=== PATIENT | female | born 1935 | race Caucasian/White ===

== ENCOUNTER 2023-01-30 10:56 | Inpatient (IN) | payer MEDICARE ==
[2023-01-30] VITALS (12 sets, daily range): BP systolic 99–130; BP diastolic 40–102
[~2023-01-30] VITALS: Ht 157.5 cm; Wt 71.4 kg
[2023-01-30 11:27] LABS: BASOPHILS % (AUTO) 0.2 % (0-1); EOSINOPHILS % (AUTO) 0.2 % (0-6); HEMATOCRIT 33.7 % (35.0-45.0); HEMOGLOBIN 11.1 g/dl (12.0-16.0); LYMPHOCYTES # (AUTO) 0.7 X10'3 (1.1-4.8); LYMPHOCYTES % (AUTO) 15.3 % (21-51); MEAN CORPUSCULAR HEMOGLOBIN 31.1 PG (27.0-31.0); MEAN CORPUSCULAR HGB CONC 32.9 g/dL (33.0-36.5); MEAN CORPUSCULAR VOLUME 94.5 FL (78-98); MEAN PLATELET VOLUME 7.5 FL (7.4-10.4); MONOCYTES # (AUTO) 0.2 X10'3 (0-0.9); MONOCYTES % (AUTO) 3.8 % (2-12); NEUTROPHILS # (AUTO) 3.6 X10'3 (1.8-7.7); NEUTROPHILS % (AUTO) 80.5 % (42-75); PLATELET COUNT 163 X10'3 (140-440); RED BLOOD COUNT 3.57 X10'6 (4.20-5.60); RED CELL DISTRIBUTION WIDTH 13.9 % (11.5-14.5); WHITE BLOOD COUNT 4.5 X10'3 (4.5-11.0)
--- NOTE | 2023-01-30 11:27 | NUR ---
Patient was seen by Dr. Benavides. Per Dr. Benavides, we will keep an eye on patient's BP and HR. He wanted to be notified if HR is bradycardic with low BP SBP <90
[2023-01-30 11:37] LABS: ALANINE AMINOTRANSFERASE 22 U/L (12-78); ALBUMIN/GLOBULIN RATIO 1.1 (1.1-1.5); ALKALINE PHOSPHATASE 68 IU/L (46-116); ANION GAP 12 (8-16); ASPARTATE AMINO TRANSFERASE 21 U/L (10-37); BILIRUBIN,TOTAL 0.3 MG/DL (0.1-1.0); BLOOD UREA NITROGEN 18 MG/DL (7-18); BUN/CREATININE RATIO 26.9 (10.0-20.0); CALCIUM 8.3 MG/DL (8.5-10.1); CHLORIDE 107 MMOL/L (99-107); CREATININE 0.67 MG/DL (0.40-0.90); GLUCOSE 104 MG/DL (70-104); SODIUM 145 MMOL/L (135-145); TOTAL CARBON DIOXIDE 25.7 MMOL/L (24-32); TOTAL PROTEIN 5.8 G/DL (6.4-8.2); eGFR 83 ML/MIN
[2023-01-30 11:40] LABS: POTASSIUM 4.5 MMOL/L (3.5-5.1)
[2023-01-30 11:47] LABS: MAGNESIUM 1.8 MG/DL (1.5-2.4); PHOSPHORUS 4.2 MG/DL (2.3-4.5)
[2023-01-30] MEDS ORDERED: LIDOCAINE 2%/EPI 1:100,000 inj. Multi-dose 20 ML VIAL ONE ×2 (13:54→14:40)
[2023-01-30] MEDS ORDERED: fentaNYL/PF 50MCG/1 ML 2ML syringe ONE (13:54)
[2023-01-30] MEDS ORDERED: midazolam 1 mg/ML 2ml injection ONE (13:54)
--- NOTE | 2023-01-30 14:07 | NUR ---
medical laboratory technicians RN art bedside getting patient sign the consent for pacemaker insertion
[2023-01-30] MEDS ORDERED: magnesium hydroxide 30ml (MOM) UD suspension PO PRN (14:10)
[2023-01-30] MEDS ORDERED: ondansetron/PF 4mg/2ml inj IV PRN (14:10)
[2023-01-30] MEDS ORDERED: normal saline 1000ml 1,000 ML IV SCH ×2 (14:10→16:00)
[2023-01-30] MEDS ORDERED: acetaminophen 325mg tablet PO PRN ×2 (14:10)
[2023-01-30] MEDS ORDERED: ceFAZolin 1000mg inj ONE (14:29)
--- NOTE | 2023-01-30 15:35 | NUR ---
Received report from medical laboratory scientist RNDavid
[2023-01-30] MEDS ORDERED: HYDROcodone/acetaminophen 10/325mg tab PO PRN (16:05)
[2023-01-30] MEDS ORDERED: HYDROcodone/acetaminophen 5mg/325mg tablet PO PRN (16:05)
[2023-01-30] MEDS ORDERED: LORazepam 1 MG tablet PO PRN (16:05)
[2023-01-30] MEDS ORDERED: SERT-432 PO (16:08)
[2023-01-30] MEDS ORDERED: MULT-1085 PO (17:00)
[2023-01-30] MEDS ORDERED: CALC1CAP21 PO (17:00)
[2023-01-30] MEDS ORDERED: ASPI-611 PO (17:00)
[2023-01-30] MEDS ORDERED: PYRI60TA PO (17:00)
[2023-01-30] MEDS: famotidine 20mg tablet PO SCH (19:49)
[2023-01-30] MEDS: heparin, porcine 5000 units/ml vial SQ SCH (19:51)
[2023-01-30] MEDS: docusate sod 100mg capsule PO SCH (19:51)
[2023-01-30] MEDS: ceFAZolin/D5W- 1GM premix 50 ML IV SCH (23:23)
[2023-01-31 02:00] VITALS: BP 122/53
[2023-01-31 02:21] LABS: CLARITY,URINE CLEAR (Clear); COLOR,URINE YELLOW (Yellow); GLUCOSE, URINE NEGATIVE (Neg); KETONES,URINE TRACE mg/dl (Neg); LEUKOCYTE ESTERASE ,URINE TRACE (Neg); NITRITES, URINE NEGATIVE (Neg); OCCULT BLOOD,URINE NEGATIVE (Neg); PROTEIN,URINE NEGATIVE (Neg); UROBILINOGEN,URINE 0.2 E.U/dL (0.2-1.0)
[2023-01-31 02:29] LABS: UA COLLECTION TYPE CLN CATCH MIDSTREAM
[2023-01-31 02:30] LABS: BACTERIA,URINE FEW /HPF (Neg); MUCUS STRANDS FEW /LPF (Neg); RBC,URINE 0-2 /HPF (0-2); SQUAMOUS EPITHELIAL CELL,UR FEW /LPF (FEW); WBC CLUMPS,URINE FEW /HPF (NEGATIVE)
[2023-01-31 03:08] LABS: URINE AMPHETAMINE SCREEN NEGATIVE (Neg); URINE BARBITUATE SCREEN NEGATIVE (Neg); URINE BENZODIAZEPINES SCREEN POSITIVE (Neg); URINE CANNABINOID SCREEN NEGATIVE (Neg); URINE COCAINE SCREEN NEGATIVE (Neg); URINE METHADONE SCREEN NEGATIVE (Neg); URINE OPIATE SCREEN NEGATIVE (Neg); URINE PHENCYCLIDINE SCREEN NEGATIVE (Neg)
[2023-01-31 06:00] VITALS: BP 107/57
--- NOTE | 2023-01-31 06:05 | NUR ---
Problems reprioritized. Patient report given, questions answered & plan of care reviewed with VICKY Russo.
[2023-01-31 06:16] LABS: BASOPHILS % (AUTO) 0.4 % (0-1); EOSINOPHILS % (AUTO) 0.5 % (0-6); HEMATOCRIT 33.4 % (35.0-45.0); LYMPHOCYTES # (AUTO) 0.6 X10'3 (1.1-4.8); LYMPHOCYTES % (AUTO) 12.3 % (21-51); MEAN CORPUSCULAR HEMOGLOBIN 31.2 PG (27.0-31.0); MEAN CORPUSCULAR HGB CONC 33.1 g/dL (33.0-36.5); MEAN CORPUSCULAR VOLUME 94.5 FL (78-98); MEAN PLATELET VOLUME 7.5 FL (7.4-10.4); MONOCYTES # (AUTO) 0.4 X10'3 (0-0.9); MONOCYTES % (AUTO) 7.4 % (2-12); NEUTROPHILS # (AUTO) 4.2 X10'3 (1.8-7.7); NEUTROPHILS % (AUTO) 79.4 % (42-75); PLATELET COUNT 152 X10'3 (140-440); RED BLOOD COUNT 3.53 X10'6 (4.20-5.60); RED CELL DISTRIBUTION WIDTH 13.7 % (11.5-14.5); WHITE BLOOD COUNT 5.3 X10'3 (4.5-11.0)
[2023-01-31 06:20] LABS: ALANINE AMINOTRANSFERASE 18 U/L (12-78); ALBUMIN 2.7 G/DL (3.4-5.0); ALKALINE PHOSPHATASE 60 IU/L (46-116); ANION GAP 5 (8-16); ASPARTATE AMINO TRANSFERASE 25 U/L (10-37); BILIRUBIN,TOTAL 0.3 MG/DL (0.1-1.0); BLOOD UREA NITROGEN 16 MG/DL (7-18); CALCIUM 8.3 MG/DL (8.5-10.1); CHLORIDE 107 MMOL/L (99-107); GLUCOSE 83 MG/DL (70-104); MAGNESIUM 1.8 MG/DL (1.5-2.4); PHOSPHORUS 3.8 MG/DL (2.3-4.5); POTASSIUM 4.1 MMOL/L (3.5-5.1); SODIUM 141 MMOL/L (135-145); TOTAL CARBON DIOXIDE 29.3 MMOL/L (24-32); TOTAL PROTEIN 5.4 G/DL (6.4-8.2); eGFR 68 ML/MIN
--- NOTE | 2023-01-31 06:25 | NUR ---
Patient in room PCU 3023. I have received report from Amalia and had the opportunity to ask questions and assume patient care.
[2023-01-31] MEDS: ceFAZolin/D5W- 1GM premix 50 ML IV SCH (07:27)
[2023-01-31] MEDS: docusate sod 100mg capsule PO SCH (07:27)
[2023-01-31] MEDS: famotidine 20mg tablet PO SCH (07:27)
[2023-01-31] MEDS: heparin, porcine 5000 units/ml vial SQ SCH (07:28)
[2023-01-31 11:45] VITALS: BP 129/67
[2023-01-31] MEDS ORDERED: famotidine 20mg tablet PO SCH (14:36)
--- NOTE | 2023-01-31 15:55 | NUR ---
Reviewed discharge instructions with patient. Patient verbalized understanding and expressed a readiness to discharge home. Patient is alert, oriented and able to dress herself and gather belongings. Patient was wheeled downstairs to be driven home by her daughter.
== END 2023-01-31 15:45 | disposition home or self-care (01) | DRG 244 ==
LOC: ER 10:57 → PCU 3S 16:16 → UNDOADMIN 16:16 → PCU 3S 16:24 → UNDODISIN 01-31 15:45
PROVIDERS: ADMIT Internal Medicine; ATTEND Internal Medicine
PROC: 0JH606Z Insertion of Pacemaker, Dual Chamber into Chest Subcutaneous Tissue and Fascia, Open Approach (ICD-10-PCS; principal; 2023-01-30)
PROC: 02HK3JZ Insertion of Pacemaker Lead into Right Ventricle, Percutaneous Approach (ICD-10-PCS; 2023-01-30)
PROC: 02HL3JZ Insertion of Pacemaker Lead into Left Ventricle, Percutaneous Approach (ICD-10-PCS; 2023-01-30)
DX: R00.1 Bradycardia, unspecified (principal); Z66 Do not resuscitate; Z60.2 Problems related to living alone; R55 Syncope and collapse; Z85.3 Personal history of malignant neoplasm of breast; Z88.1 Allergy status to other antibiotic agents; Z88.8 Allergy status to other drugs, medicaments and biological substances; Z90.12 Acquired absence of left breast and nipple; Z79.899 Other long term (current) drug therapy; Z79.82 Long term (current) use of aspirin
CPT/HCPCS: 33208; 36415; 71045; 71046; 80053; 80305; 81001; 83735; 83880; 84100; 84439; 84443; 84484; 85025; 85610; 87081; 87088; 93005; 93306; 97161; 97530; 99152; 99153; 99285; A4565; C1785; C1898; G0378; J0690; J1644; J2250; J2405; J3010; J7030